=== PATIENT | female | born 1980 | race Two or more races ===

== ENCOUNTER 2020-02-15 20:26 | Emergency (ER) | payer MEDICAID ==
[~2020-02-15] VITALS: Ht 152.4 cm; Wt 89.8 kg
[2020-02-16 00:49] VITALS: BP 159/86
== END 2020-02-16 02:19 | disposition home or self-care (01) ==
LOC: ER 20:26
DX: S80.261A Insect bite (nonvenomous), right knee, initial encounter (principal); L03.115 Cellulitis of right lower limb; W57.XXXA Bitten or stung by nonvenomous insect and other nonvenomous arthropods, initial encounter; Y93.89 Activity, other specified; Y92.89 Other specified places as the place of occurrence of the external cause; Y99.8 Other external cause status